=== PATIENT | female | born 1975 | race Caucasian/White ===

== ENCOUNTER 2019-03-07 16:02 | Inpatient (IN) | payer MEDICAID ==
[~2019-03-07] VITALS: Ht 165.1 cm; Wt 118.0 kg
[~2019-03-07 16:02] MED LIST: CIPR-230 PO; HYDR-3965 PO; IBUP-1984 PO; NEOM10DR45 OT; NO HOME MEDS
[2019-03-07] MEDS ORDERED: LORazepam 2 mg/ml vial IV ONE (16:45)
[2019-03-07] MEDS ORDERED: ketorolac trometh. 30mg/ml inj. IV ONE (16:45)
[2019-03-07] MEDS ORDERED: ipratropium/albuterol 3ml nebule NEB ONE (16:45)
[2019-03-07 17:21] LABS: BASOPHILS # (AUTO) 0.1 X10'3 (0-0.2); BASOPHILS % (AUTO) 0.6 % (0-1); EOSINOPHILS # (AUTO) 0.2 X10'3 (0-0.9); EOSINOPHILS % (AUTO) 1.3 % (0-6); HEMATOCRIT 42.4 % (35.0-45.0); HEMOGLOBIN 14.5 g/dl (12.0-16.0); LYMPHOCYTES # (AUTO) 1.5 X10'3 (1.1-4.8); LYMPHOCYTES % (AUTO) 9.4 % (21-51); MEAN CORPUSCULAR HEMOGLOBIN 29.4 PG (27.0-31.0); MEAN CORPUSCULAR HGB CONC 34.3 g/dL (33.0-36.5); MEAN CORPUSCULAR VOLUME 85.9 FL (78-98); MEAN PLATELET VOLUME 8.5 FL (7.4-10.4); MONOCYTES # (AUTO) 0.6 X10'3 (0-0.9); MONOCYTES % (AUTO) 3.5 % (2-12); NEUTROPHILS # (AUTO) 13.5 X10'3 (1.8-7.7); NEUTROPHILS % (AUTO) 85.2 % (42-75); PLATELET COUNT 270 X10'3 (140-440); RED BLOOD COUNT 4.94 X10'6 (4.20-5.60); RED CELL DISTRIBUTION WIDTH 13.2 % (11.5-14.5); WHITE BLOOD COUNT 15.8 X10'3 (4.5-11.0)
[2019-03-07 17:27] LABS: ALANINE AMINOTRANSFERASE 76 U/L (12-78); ALBUMIN 3.1 G/DL (3.4-5.0); ALBUMIN/GLOBULIN RATIO 0.8 (1.1-1.5); ALKALINE PHOSPHATASE 86 IU/L (46-116); ANION GAP 9 (8-16); ASPARTATE AMINO TRANSFERASE 30 U/L (10-37); BILIRUBIN,TOTAL 0.8 MG/DL (0.1-1.0); BLOOD UREA NITROGEN 12 MG/DL (7-18); BUN/CREATININE RATIO 16.7 (6.6-38.0); CHLORIDE 100 MMOL/L (99-107); CREATININE 0.72 MG/DL (0.40-0.90); GLUCOSE 227 MG/DL (70-104); POTASSIUM 3.8 MMOL/L (3.5-5.1); SODIUM 135 MMOL/L (135-145); TOTAL CARBON DIOXIDE 26.4 MMOL/L (24-32); TOTAL PROTEIN 6.8 G/DL (6.4-8.2); eGFR 88 ML/MIN
[2019-03-07 17:32] LABS: CLARITY,URINE SLIGHTLY CLOUDY (Clear); COLOR,URINE YELLOW (Yellow); GLUCOSE, URINE 500 mg/dl (Neg); KETONES,URINE NEGATIVE (Neg); LEUKOCYTE ESTERASE ,URINE NEGATIVE (Neg); NITRITES, URINE NEGATIVE (Neg); OCCULT BLOOD,URINE NEGATIVE (Neg); PROTEIN,URINE NEGATIVE (Neg); UROBILINOGEN,URINE 0.2 E.U/dL (0.2-1.0)
[2019-03-07 17:40] LABS: UA COLLECTION TYPE CLN CATCH MIDSTREAM
[2019-03-07 17:43] LABS: BACTERIA,URINE 1+ /HPF (Neg); MUCUS STRANDS FEW /LPF (Neg); RBC,URINE 0-2 /HPF (0-2); SQUAMOUS EPITHELIAL CELL,UR MANY /LPF (FEW); WBC,URINE 0-4 /HPF (0-4)
[2019-03-07 17:44] LABS: PARTIAL THROMBOPLASTIN TIME 23 SECONDS (22-32)
--- NOTE | 2019-03-07 18:39 | NUR ---
Pt resting with stable vitals. Pt is awaiting further orders or disposition.
[2019-03-07] MEDS ORDERED: azithromycin 250mg tablet PO ONE (18:45)
[2019-03-07] MEDS ORDERED: CefTRIAXone 2gm/D5W 50ml 50 ML IV ONE (18:45)
[2019-03-07] MEDS ORDERED: ringers solution, lacted 1,000 ML IV ONE (18:45)
--- NOTE | 2019-03-07 19:28 | NUR ---
Pt is sleeping and has signs of apnea while sleeping. Pt's pulse oximetry will range from 85-96% on room air. Pt placed on 2l/min via nc to increase the SpO2.
[2019-03-07] MEDS ORDERED: AMLO5TAB16 PO (19:34)
[2019-03-07] MEDS ORDERED: ALBU18HF2 INH (19:34)
[2019-03-07] MEDS ORDERED: amLODIPine 5mg tablet PO ONE (20:25)
[2019-03-07] MEDS ORDERED: acetaminophen 325mg tablet PO PRN (20:55)
[2019-03-07] MEDS ORDERED: ondansetron/PF 4mg/2ml inj IV PRN (20:55)
[2019-03-07] MEDS ORDERED: mag hydrox/Alum hydrox/simeth 30ml oral suspension PO PRN (20:55)
[2019-03-07] MEDS ORDERED: magnesium hydroxide 30ml (MOM) UD suspension PO PRN (20:55)
[2019-03-07] MEDS ORDERED: glucagon, human recombinant 1mg kit SUBCUT PRN (21:00)
[2019-03-07] MEDS ORDERED: MESSAGE TO PHARMACY PO ONE (21:00)
[2019-03-07] MEDS ORDERED: dextrose 50%-water 50ml dispensing syringe IV PRN ×2 (21:00)
[2019-03-07] MEDS ORDERED: dextrose ORAL solution 15 GM/59 ML bottle PO PRN ×2 (21:00)
[2019-03-07 21:19] LABS: HEMOGLOBIN A1C 7.9 % (4.5-6.2)
--- NOTE | 2019-03-07 21:41 | NUR ---
Patient in room ED 9. I have received report from Janine RN in ER and had the opportunity to ask questions. Awaiting patient arrival to .
[2019-03-07 21:45] VITALS: BP 181/115
--- NOTE | 2019-03-07 22:14 | NUR ---
Patient arrived to 3024A at 2145. BP 181/110 and sating well on 2L 94%. Able to ambulate to bedside from [facility] but extremely short of breath. Patient belongings on bedside table. Patient states she is very sleepy. Will continue to monitor closely.
[2019-03-08] MEDS ORDERED: enalaprilat dihydrate 2.5mg/2ml vial IV PRN (00:25)
[2019-03-08 03:00] VITALS: BP 165/105
[2019-03-08] MEDS ORDERED: albuterol 2.5 MG/3 ML nebule NEB PRN (03:45)
[2019-03-08 06:00] VITALS: BP 147/82
[2019-03-08 06:14] LABS: BASOPHILS # (AUTO) 0.1 X10'3 (0-0.2); BASOPHILS % (AUTO) 0.7 % (0-1); EOSINOPHILS # (AUTO) 0.2 X10'3 (0-0.9); EOSINOPHILS % (AUTO) 1.5 % (0-6); HEMATOCRIT 42.5 % (35.0-45.0); HEMOGLOBIN 14.6 g/dl (12.0-16.0); LYMPHOCYTES % (AUTO) 7.6 % (21-51); MEAN CORPUSCULAR HGB CONC 34.3 g/dL (33.0-36.5); MEAN CORPUSCULAR VOLUME 87.3 FL (78-98); MEAN PLATELET VOLUME 8.9 FL (7.4-10.4); MONOCYTES # (AUTO) 0.6 X10'3 (0-0.9); MONOCYTES % (AUTO) 4.8 % (2-12); NEUTROPHILS # (AUTO) 11.1 X10'3 (1.8-7.7); NEUTROPHILS % (AUTO) 85.4 % (42-75); PLATELET COUNT 243 X10'3 (140-440); RED BLOOD COUNT 4.87 X10'6 (4.20-5.60); RED CELL DISTRIBUTION WIDTH 13.3 % (11.5-14.5)
[2019-03-08 06:23] LABS: ALANINE AMINOTRANSFERASE 74 U/L (12-78); ALBUMIN 3.2 G/DL (3.4-5.0); ALBUMIN/GLOBULIN RATIO 0.8 (1.1-1.5); ALKALINE PHOSPHATASE 94 IU/L (46-116); ANION GAP 9 (8-16); ASPARTATE AMINO TRANSFERASE 37 U/L (10-37); BILIRUBIN,TOTAL 0.7 MG/DL (0.1-1.0); BLOOD UREA NITROGEN 10 MG/DL (7-18); BUN/CREATININE RATIO 12.8 (6.6-38.0); CALCIUM 8.6 MG/DL (8.5-10.1); CHLORIDE 97 MMOL/L (99-107); CREATININE 0.78 MG/DL (0.40-0.90); GLUCOSE 195 MG/DL (70-104); POTASSIUM 3.7 MMOL/L (3.5-5.1); SODIUM 132 MMOL/L (135-145); TOTAL CARBON DIOXIDE 25.6 MMOL/L (24-32); TOTAL PROTEIN 7.3 G/DL (6.4-8.2); eGFR 80 ML/MIN
--- NOTE | 2019-03-08 06:24 | NUR ---
Problems reprioritized. Patient report given, questions answered & plan of care reviewed with FAITH Osborne and FAITH Das.
--- NOTE | 2019-03-08 06:45 | NUR ---
Patient in room PCU 3024. I have received report from Tu CUEVAS and had the opportunity to ask questions and assume patient care.
--- NOTE | 2019-03-08 06:46 | NUR ---
Patient in room PCU 3024. I have received report from FAITH Mae and had the opportunity to ask questions and assume patient care.
[2019-03-08] MEDS: azithromycin 250mg tablet PO SCH (08:12)
[2019-03-08] MEDS: CefTRIAXone/D5W-Rocephin 1gm 50 ML IV SCH (08:12)
[2019-03-08] MEDS: heparin, porcine 5000 units/ml vial SQ SCH ×2 (08:13→19:48)
[2019-03-08] MEDS ORDERED: acetaminophen 325mg tablet PO PRN (08:25)
--- NOTE | 2019-03-08 08:26 | NUR ---
received orders for tylenol prn for mild pain per dr betts
--- NOTE | 2019-03-08 10:49 | NUR ---
received orders to start nicotine patch d/t pt is a smoker per dr. betts
[2019-03-08 11:00] VITALS: BP 168/95
[2019-03-08] MEDS: nicotine 21mg patch - 24 hr TD SCH (11:06)
[2019-03-08] MEDS: amLODIPine 5mg tablet PO SCH (12:35)
[2019-03-08] MEDS: insulin Lispro (HumaLOG) vial - multi-dose SQ SCH ×2 (12:40→18:46)
[2019-03-08 14:53] LABS: URINE AMPHETAMINE SCREEN POSITIVE (Neg); URINE BARBITUATE SCREEN NEGATIVE (Neg); URINE BENZODIAZEPINES SCREEN NEGATIVE (Neg); URINE CANNABINOID SCREEN NEGATIVE (Neg); URINE COCAINE SCREEN NEGATIVE (Neg); URINE METHADONE SCREEN NEGATIVE (Neg); URINE OPIATE SCREEN NEGATIVE (Neg); URINE PHENCYCLIDINE SCREEN NEGATIVE (Neg)
[2019-03-08 15:00] VITALS: BP 173/104
--- NOTE | 2019-03-08 15:33 | NUR ---
pt is positive for amphetamines via urine tox, dr. betts notified no new orders, pt SBP 177/111 ok to give vasotech per dr. betts
[2019-03-08] MEDS ORDERED: ibuprofen tablet 400 MG TABLET PO PRN (17:25)
--- NOTE | 2019-03-08 17:41 | NUR ---
DM consult: Pt with A1c 7.9 seen at bedside. Pt reports she was previously taking DM meds however was told that if she lost some weight she would no longer need them, which she states she was able to achieve. Pt reports it has been years since she was told she no longer needed to take her MD medications and reports "always being borderline diabetic". Messaged MD about pt being unaware of having diabetes. Pt provided with written DM education with referral to outpatient DM class and RD contact information. RD encouraged pt discuss current DM status with MD. Pt endorses a good appetite which is evident with documented 100% PO intake on CHO controlled diet. Pt agrees to double eggs QD with breakfast and double protein TID for satiety, d/w dietary. Pt reports food allergy to pineapple and green almonte peppers, EMR updated. Pt denies any difficulty chewing/swallowing or constipation/diarrhea. [facility] 03/07. Will continue to follow. Addendum: 03/08/19 at [address] Amended: Links added.
--- NOTE | 2019-03-08 18:17 | NUR ---
Problems reprioritized. Patient report given, questions answered & plan of care reviewed with FAITH kwong. Addendum: 03/08/19 at 1826 by Pippa Strickland RN Problems reprioritized. Patient report given, questions answered & plan of care reviewed with FAITH Mae.
--- NOTE | 2019-03-08 18:31 | NUR ---
Orientation documentation: I have reviewed and agree with all interventions, assessments performed and documented by Pippa CUEVAS.
--- NOTE | 2019-03-08 18:34 | NUR ---
Patient in room PCU 3024a. I have received report from FAITH Shafer and FAITH Das and had the opportunity to ask questions and assume patient care. Patient awake for bedside report and on 3L NC. Stable at this time. Will continue to monitor closely.
[2019-03-08 19:00] VITALS: BP 162/86
[2019-03-08] MEDS: lactobacillus rhamnosus 10,000 MMU CELLS/CAPSULE PO SCH (19:48)
[2019-03-08] MEDS ORDERED: insulin glargine (Lantus) pen - multi-dose SQ SCH (21:00)
[2019-03-08 23:00] VITALS: BP 131/81
[2019-03-09 03:00] VITALS: BP 140/81
[2019-03-09 05:56] LABS: BASOPHILS # (AUTO) 0.1 X10'3 (0-0.2); BASOPHILS % (AUTO) 1.1 % (0-1); EOSINOPHILS # (AUTO) 0.1 X10'3 (0-0.9); EOSINOPHILS % (AUTO) 1.6 % (0-6); HEMATOCRIT 43.1 % (35.0-45.0); HEMOGLOBIN 14.9 g/dl (12.0-16.0); LYMPHOCYTES # (AUTO) 0.9 X10'3 (1.1-4.8); LYMPHOCYTES % (AUTO) 10.7 % (21-51); MEAN CORPUSCULAR HGB CONC 34.7 g/dL (33.0-36.5); MEAN CORPUSCULAR VOLUME 86.4 FL (78-98); MEAN PLATELET VOLUME 8.4 FL (7.4-10.4); MONOCYTES # (AUTO) 0.6 X10'3 (0-0.9); MONOCYTES % (AUTO) 7.5 % (2-12); NEUTROPHILS # (AUTO) 6.9 X10'3 (1.8-7.7); NEUTROPHILS % (AUTO) 79.1 % (42-75); PLATELET COUNT 244 X10'3 (140-440); RED BLOOD COUNT 4.99 X10'6 (4.20-5.60); RED CELL DISTRIBUTION WIDTH 13.3 % (11.5-14.5); WHITE BLOOD COUNT 8.7 X10'3 (4.5-11.0)
--- NOTE | 2019-03-09 06:30 | NUR ---
Patient in room PCU 3024. I have received report from Gloria CUEVAS and had the opportunity to ask questions and assume patient care.
[2019-03-09 06:38] LABS: ALANINE AMINOTRANSFERASE 74 U/L (12-78); ALBUMIN 2.9 G/DL (3.4-5.0); ALBUMIN/GLOBULIN RATIO 0.7 (1.1-1.5); ALKALINE PHOSPHATASE 89 IU/L (46-116); ANION GAP 10 (8-16); ASPARTATE AMINO TRANSFERASE 62 U/L (10-37); BILIRUBIN,TOTAL 0.5 MG/DL (0.1-1.0); BLOOD UREA NITROGEN 10 MG/DL (7-18); BUN/CREATININE RATIO 13.7 (6.6-38.0); CALCIUM 8.3 MG/DL (8.5-10.1); CHLORIDE 98 MMOL/L (99-107); CREATININE 0.73 MG/DL (0.40-0.90); GLUCOSE 158 MG/DL (70-104); POTASSIUM 3.7 MMOL/L (3.5-5.1); SODIUM 135 MMOL/L (135-145); TOTAL CARBON DIOXIDE 26.6 MMOL/L (24-32); TOTAL PROTEIN 7.1 G/DL (6.4-8.2); eGFR 86 ML/MIN
--- NOTE | 2019-03-09 06:43 | NUR ---
Problems reprioritized. Patient report given, questions answered & plan of care reviewed with FAITH Scott.
[2019-03-09] MEDS: azithromycin 250mg tablet PO SCH (07:38)
[2019-03-09] MEDS: lactobacillus rhamnosus 10,000 MMU CELLS/CAPSULE PO SCH (07:38)
[2019-03-09] MEDS: amLODIPine 5mg tablet PO SCH (07:38)
[2019-03-09] MEDS: CefTRIAXone/D5W-Rocephin 1gm 50 ML IV SCH (07:38)
[2019-03-09] MEDS: heparin, porcine 5000 units/ml vial SQ SCH (07:38)
[2019-03-09] MEDS: nicotine 21mg patch - 24 hr TD SCH (07:39)
[2019-03-09] MEDS: insulin Lispro (HumaLOG) vial - multi-dose SQ SCH ×2 (08:48→13:52)
[2019-03-09 11:00] VITALS: BP 144/101
[2019-03-09] MEDS ORDERED: CEFD300C3 PO (14:13)
[2019-03-09] MEDS ORDERED: ALBU2.5V7 NEB (14:13)
--- NOTE | 2019-03-09 14:24 | NUR ---
Spoke with Pt about MD wanting a joyce scan done in the morning. Pt is refusing the joyce scan and wants to be discharged and go home. Both MD and nurse spoke with Pt about the pro's and con's of having a joyce scan and the importance of the results and Pt is still refusing to have joyce scan in the morning.
[2019-03-09] MEDS ORDERED: furosemide 20MG tablet PO SCH (14:25)
[2019-03-09] MEDS ORDERED: LISI-604 PO (14:28)
[2019-03-09] MEDS ORDERED: FURO-150 PO (14:28)
[2019-03-09] MEDS ORDERED: POTA10TA36 PO (14:29)
[2019-03-09] MEDS ORDERED: lisinopril 5mg tablet PO SCH (14:30)
--- NOTE | 2019-03-09 14:37 | NUR ---
O2 Sat at rest on room air: 95_% If below 89%: Recovery O2 Sat at rest on ___LPM:___%:___% via (mask/nasal cannula, etc..) No further documentation is necessary. If O2 Sat did not drop below 89% on room air,ambulate patient on room air. O2 Sat while ambulating on room air:_92_% Recovery O2 Sat while ambulating on ___LPM:___% No further documentation is necessary. If patient does not drop below 89% while ambulating, he/she does not qualify for home O2.
[2019-03-09] MEDS ORDERED: CARV3.12 PO (14:51)
[2019-03-09] MEDS ORDERED: METF500T PO (14:53)
[2019-03-09] MEDS ORDERED: BLOO1EAC70 MC (14:54)
[2019-03-09 15:00] VITALS: BP 150/85
--- NOTE | 2019-03-09 15:15 | NUR ---
New prescriptions called to [facility] in [place], [place].
--- NOTE | 2019-03-09 16:00 | NUR ---
Pt DC'd home with . IV removed, canula intact. Pt stable at DC, vitals WNL. Pt alert and oriented. DC paperwork gone over with Pt, allowed Pt to ask questions and then answer them. New medications were called into [facility] pharmacy in [place] for pickup. MD, Dr. Courtney, wanted to keep Pt one more day for a joyce scan but Pt refused to stay for scan. Pt lives in [facility] and will return home on 03/15/19. Pt will follow up with PCP back home in [place] for a jewel scan, sleep study and nebulizer. Pt's belongings gathered and sent with Pt. Pt wheeled down to lobby in wheel chair by aid and left with in private vehicle.
[2019-03-09] MEDS ORDERED: insulin glargine (Lantus) pen - multi-dose SQ SCH (21:00)
== END 2019-03-09 17:08 | disposition home or self-care (01) | DRG 720 ==
LOC: ER 16:03 → ED HOLD 21:00 → EDBEDREQ 21:05 → PCU 3S 21:59
PROVIDERS: ADMIT Internal Medicine; ATTEND Internal Medicine
DX: A41.9 Sepsis, unspecified organism (principal); I50.23 Acute on chronic systolic (congestive) heart failure; J18.9 Pneumonia, unspecified organism; I11.0 Hypertensive heart disease with heart failure; E11.65 Type 2 diabetes mellitus with hyperglycemia; E66.01 Morbid (severe) obesity due to excess calories; E87.1 Hypo-osmolality and hyponatremia; Z68.41 Body mass index [BMI] 40.0-44.9, adult; G47.33 Obstructive sleep apnea (adult) (pediatric); F17.210 Nicotine dependence, cigarettes, uncomplicated; F40.240 Claustrophobia; R06.03 Acute respiratory distress; G89.29 Other chronic pain; M54.9 Dorsalgia, unspecified; J44.0 Chronic obstructive pulmonary disease with (acute) lower respiratory infection; R09.02 Hypoxemia; Z88.0 Allergy status to penicillin; Z88.2 Allergy status to sulfonamides; Z98.891 History of uterine scar from previous surgery; Z71.6 Tobacco abuse counseling
CPT/HCPCS: 36415; 71045; 80053; 80305; 81001; 82948; 83036; 83605; 84145; 85025; 85610; 85730; 87040; 87081; 93005; 93306; 94640; 94760; 96365; 96375; 99285; G0378; J0696; J1644; J1815; J1885; J2060; J7120